=== PATIENT | female | born 1985 | race Caucasian/White ===

== ENCOUNTER 2018-09-21 17:37 | Emergency (ER) | payer OTHER ==
[~2018-09-21] VITALS: Ht 182.9 cm; Wt 77.1 kg
[2018-09-21 17:37] VITALS: BP 104/37
--- NOTE | 2018-09-21 18:26 | PHYS DOC ---
Past History Past Medical History: Other Additional Past Medical Histor: M to F transition Past Surgical History: No Surgical History Smoking: Non-smoker Alcohol Use: Occasionally Drug Use: None Adult General Chief Complaint Chief Complaint: FOOT INJURY PAIN HPI HPI Patient is a 33 year old patient presents with right great toe pain. This morning at approximately 10:00 he dropped a weight for weight lifting on the toe. There was immediate pain and swelling. Increased pain with movement. Pain is moderate. No pain proximal to the great toe. No home medicines have been taken.[] Review of Systems Review of Systems Constitutional: Denies fever or chills [] Eyes: Denies change in visual acuity, redness, or eye pain [] HENT: Denies nasal congestion or sore throat [] Respiratory: Denies cough or shortness of breath [] Cardiovascular: No chest pain or palpitations[] GI: Denies abdominal pain, nausea, vomiting, bloody stools or diarrhea [] : Denies dysuria or hematuria [] Musculoskeletal: Denies back pain, see history of present illness[] Integument: Denies rash or skin lesions [] Neurologic: Denies headache, focal weakness or sensory changes [] Endocrine: Denies polyuria or polydipsia [] All other systems were reviewed and found to be within normal limits, except as documented in this note. Physical Exam Physical Exam Constitutional: Well developed, well nourished, mild discomfort, non-toxic appearance. [] HENT: Normocephalic, atraumatic, bilateral external ears normal, oropharynx moist, no oral exudates, nose normal. [] Eyes: PERRLA, EOMI, conjunctiva normal, no discharge. [] Neck: Normal range of motion, no tenderness, supple, no stridor. [] Cardiovascular:Heart rate regular rhythm, no murmur [] Lungs & Thorax: Bilateral breath sounds clear to auscultation [] Abdomen: Not examined. [] Skin: Warm, dry, no erythema, no rash. [] Back: No tenderness, no CVA tenderness. [] Extremities: Right foot/great toe: There is edema and bruising for the entire length of the toe. Decreased active range of motion secondary to pain. Patient is distally neurovascularly intact. Capillary refills less than 2 seconds. There is injury to the medial portion of the nail with blood around the edge of the nailbed. No metatarsal tenderness to palpation. No subungual hematoma appreciated. A joint proximally was evaluated and was normal. The other 3 extremities show: No tenderness, no cyanosis, no clubbing, ROM intact, no edema. [] Neurologic: Alert and oriented X 3, normal motor function, normal sensory function, no focal deficits noted. [] Psychologic: Affect normal, judgement normal, mood normal. [] EKG EKG [] Radiology/Procedures Radiology/Procedures Right great toe x-ray shows no evidence of a fracture, dislocation, nor foreign body[] Course & Med Decision Making Course & Med Decision Making Pertinent Labs and Imaging studies reviewed. (See chart for details) ED course: Patient arrived, was placed in bed, and tolerated exam well. They were transported to and from radiology with any complications. Anti- inflammatories were held due to possible interaction with medication that the patient is taking for there transition. They were bandaged, deandra taped, no placed in a postop shoe. They were distally neurovascularly intact after the application of these interventions. They were discharged in improved condition w ith all questions answered. Decision-making: There is no evidence of a fracture, dislocation, open fracture, retained foreign body, nor significant subungual hematoma.[] Dragon Disclaimer Dragon Disclaimer This electronic medical record was generated, in whole or in part, using a voice recognition dictation system. Departure Departure: Impression: Primary Impression: Contusion of great toe of right foot Disposition: HOME, SELF-CARE Condition: IMPROVED Referrals: PCP,NO (PCP) Patient Instructions: Crush Injury, Fingers or Toes Additional Instructions: Follow-up with your regular doctor in 2 days. If you do not have regular doctor a list of local clinics will be provided. Keep the area clean and dry. Return to the ER if worsening pain or any other concerns. Scripts Hydrocodone Bit/Acetaminophen (NORCO 5-325 TABLET) 1 Each Tablet 1 TAB PO Q4-6HRS for severe pain, #20 TAB Prov: DON DACOSTA DO 09/21/18 Problem Qualifiers Primary Impression: Contusion of great toe of right foot Encounter type: initial encounter Damage to nail status: with damage Qualified Codes: S90.211A - Contusion of right great toe with damage to nail, initial encounter DON DACOSTA DO Sep 21, 2018 18:26
[2018-09-21] MEDS ORDERED: ACETAMINOPHEN 325 MG TABLET PO ONE (18:30)
[2018-09-21] MEDS ORDERED: HYDR-3165 PO (18:58)
--- NOTE | 2018-09-22 01:34 | RAD ---
Three-view right first toe radiographs 09/21/2018 CLINICAL HISTORY: Patient dropped a weight on the right first toe earlier today. Pain. An AP digital radiograph of the right foot was obtained. Oblique and lateral digital radiographs of the right first toe were obtained. No fracture or dislocation of the right first toe is seen. No radiopaque foreign body is noted. IMPRESSION: No fracture or dislocation of the right first toe is seen. Electronically signed by: Min Garcia MD (09/22/2018 1:31 AM) [id number]
== END 2018-09-21 19:00 | disposition home or self-care (01) ==
LOC: ER 17:37
DX: S90.111A Contusion of right great toe without damage to nail, initial encounter (principal); W20.8XXA Other cause of strike by thrown, projected or falling object, initial encounter; Y93.89 Activity, other specified; Y92.89 Other specified places as the place of occurrence of the external cause; Y99.8 Other external cause status
CPT/HCPCS: 73660; 99284